=== PATIENT | male | born 1985 | race Caucasian/White ===

== ENCOUNTER 2019-01-04 02:14 | Emergency (ER) | payer OTHER ==
[~2019-01-04] VITALS: Ht 175.3 cm; Wt 117.9 kg
[2019-01-04 02:19] VITALS: BP 141/97
--- NOTE | 2019-01-04 02:30 | NUR ---
PT AMBULATED W/ STEADY GAIT TO BED 7.
--- NOTE | 2019-01-04 02:30 | NUR ---
33/M PRESENTS TO ED, C/O BODYACHES/CHILLS, CP, AND HEADACHE, AND COUGH, X4 HRS. PT TEMP 102, HR 119 AT THIS TIME, COOLING MEASURES INITIATED. PT REPORTS MIDSTERNAL CP, REPRODUCIBLE TO TOUCH. AOX4, SKIN NORMAL WARM AND DRY, RR EVEN AND UNLABORED. HX HTN, L 5TH TOE MRSA INFECTION/SURGERY RX HTN MED
[2019-01-04] MEDS ORDERED: KETOROLAC 30 MG/ML VIAL IVP ONE (03:10)
[2019-01-04] MEDS ORDERED: NACL 0.9% 1,000 ML IV ONE (03:10)
[2019-01-04 03:26] LABS: BASOPHILS % (AUTO) 0.4 % (0.0-2.0); EOSINOPHILS # (AUTO) 0.1 K/uL (0-0.4); EOSINOPHILS % (AUTO) 0.6 % (0.0-4.0); HEMATOCRIT 42.2 % (36-52); HEMOGLOBIN 14.4 g/dL (12.0-18.0); LYMPHOCYTES # (AUTO) 1.4 K/uL (2.0-11.5); LYMPHOCYTES % (AUTO) 16.7 % (20.5-51.1); MEAN CORPUSCULAR HEMOGLOBIN 30 pg (27-31); MEAN CORPUSCULAR HGB CONC 34 g/dL (33-37); MEAN CORPUSCULAR VOLUME 88.5 fL (80-94); MONOCYTES # (AUTO) 0.5 K/uL (0.8-1.0); MONOCYTES % (AUTO) 6.1 % (1.7-9.3); NEUTROPHILS # (AUTO) 6.5 K/uL (1.8-7.7); NEUTROPHILS % (AUTO) 76.2 % (42.2-75.2); PLATELET COUNT (AUTO) 235 K/uL (140-450); RED BLOOD CELL COUNT(AUTO) 4.76 MIL/uL (4.20-6.10); RED CELL DISTRIBUTION WIDTH 13.5 % (11.6-13.7); WHITE BLOOD COUNT (AUTO) 8.5 K/uL (4.8-10.8)
[2019-01-04 03:35] LABS: ANION GAP 14.9 (8-16); CARBON DIOXIDE 23.8 mmol/L (21-32); POTASSIUM 3.7 mmol/L (3.5-5.1)
[2019-01-04 03:41] LABS: ALBUMIN 3.9 g/dL (3.4-5.0); TOTAL BILIRUBIN 0.4 mg/dL (0.0-1.0)
[2019-01-04 05:06] VITALS: BP 122/68
--- NOTE | 2019-01-04 05:07 | NUR ---
Patient discharged with v/s stable. Written and verbal after care instructions given and explained. Patient alert, oriented and verbalized understanding of instructions. Ambulatory with steady gait. All questions addressed prior to discharge. ID band removed. Patient advised to follow up with PMD. Rx of NAPROSYN, AZITHROMYCIN, ACETAMINOPHEN given. Patient educated on indication of medication including possible reaction and side effects. Opportunity to ask questions provided and answered.
== END 2019-01-04 05:06 | disposition home or self-care (01) ==
LOC: MED 02:14
DX: J40 Bronchitis, not specified as acute or chronic (principal); Z98.890 Other specified postprocedural states
CPT/HCPCS: 36415; 71045; 80053; 85025; 93005; 96374; 99284; J1885; J7030